=== PATIENT | male | born 1995 | race Caucasian/White ===

== ENCOUNTER 2017-06-20 10:04 | Emergency (ER) | payer BC, OTHER ==
[~2017-06-20] VITALS: Ht 175.3 cm; Wt 119.5 kg
[2017-06-20 10:06] VITALS: Ht 175.3 cm; Wt 119.5 kg
[2017-06-20] MEDS ORDERED: DIPHTH/TET/ACEL PERTUSS (ADULT) 0.5 ML VIAL IM* ONE (10:30)
[2017-06-20] MEDS ORDERED: IBUPROFEN 600 MG TAB PO ONE (10:30)
[2017-06-20] MEDS ORDERED: AMOX1TAB10 PO (10:41)
[2017-06-20] MEDS ORDERED: IBUP-1542 PO (10:41)
[2017-06-20] MEDS ORDERED: LIDOCAINE 2% (MDV) 20 ML INJ INJ ONE (11:00)
--- NOTE | 2017-06-20 12:44 | ERD ---
ER Documentation Chief Complaint Date/Time DATE: 06/20/17 TIME: 12:41 Chief Complaint Complains of a dog bite today HPI 21-year-old male patient with no significant past medical history presents the ED complaining of a dog bite that occurred earlier today. States that this happened at work. 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 Reports that he is right- handed. States that he was sitting down while eating and accidentally bit his left forearm. Denies any fever, chills, loss of sensation, loss of range of motion, nausea, vomiting, diarrhea. Patient is up-to-date with his vaccinations except he is unsure of his tetanus vaccine. ROS All systems reviewed and are negative except as per history of present illness. Medications Home Meds Active Scripts Ibuprofen* (Motrin*) 600 Mg Tab, 600 MG PO Q6, #30 TAB Prov:TOMI PANCHAL PA-C 06/20/17 Amoxicillin/Potassium Clav (Amox-Clav 875-125 mg Tablet) 875-125 mg Tab, 1 TAB PO BID for 10 Days, #20 TAB Prov:TOMI PANCHAL PA-C 06/20/17 Allergies Allergies: Coded Allergies: No Known Allergy (Unverified , 06/20/17) PMhx/Soc Medical and Surgical Hx: pt denies Medical Hx, pt denies Surgical Hx Hx Alcohol Use: Yes (once a week) Hx Substance Use: Yes (marijuana) Hx Tobacco Use: No Smoking Status: Never smoker Physical Exam Vitals Vital Signs Date Time Temp Pulse Resp B/P Pulse Ox O2 Delivery O2 Flow Rate FiO2 06/20/17 10:06 98.3 86 20 164/98 99 Physical Exam Const: [id number], well-nourished. In no acute distress. Head: Atraumatic, normocephalic Eyes: Normal Conjunctiva without injection ENT: Normal external ear, nose and mouth. Neck: Full range of motion. No meningismus. Resp: Clear to auscultation bilaterally. No wheezing, rhonchi, rales, or crackles. No accessory muscle use. No retractions. Cardio: Regular rate and rhythm, no murmurs Skin: No petechiae or rashes Back: No midline tenderness. No CVA tenderness. Ext: No cyanosis, or edema. Cap refill less than 2 seconds. Distal pulses intact bilaterally. 3 cm laceration noted on the volar aspect of patient's left forearm, two 1 cm lacerations on the volar and dorsal aspect of patient's left forearm with minimal bleeding. No visualization of tendons or foreign bodies. Minimal bleeding noted. Slight erythema. No edema. No deformities. Neur: Awake and alert. Normal gait and coordination. Muscle strength 5/5. Sensation intact bilaterally. Psych: Normal Mood and Affect Results 24 hrs Current Medications Medications (Trade) Dose Ordered Sig/Mehreen Route PRN Reason Start Time Stop Time Status Last Admin Dose Admin Ibuprofen (Motrin) 600 mg ONCE ONCE PO 06/20/17 10:30 06/20/17 10:32 DC 06/20/17 10:43 Diphtheria/ Tetanus/Acell Pertussis (Adacel) 0.5 ml ONCE ONCE IM* 06/20/17 10:30 06/20/17 10:32 DC 06/20/17 10:44 Lidocaine (Xylocaine 2% (Mdv) 20 ml) 20 ml ONCE ONCE INJ 06/20/17 11:00 06/20/17 11:01 DC Procedures/MDM This is a 21-year-old male patient with no significant past medical history presents to the ED complaining of a left forearm dog bite. Patient is afebrile and nontoxic-appearing. Patient has normal vital signs. Tdap was administered. Patient gave consent to perform laceration repair. Laceration Repair by me: Anesthesia: 5 cc 2% lidocaine locally Location: Volar aspect of left forearm Tendon/Joint/Nerves: No injury Foreign body: None detected after copious irrigation and exploration with normal saline Technique: 2 3-0 Ethilon Simple Interrupted Sutures Complexity: No subcutaneous sutures/mucosal repair/ edge excision Post Closure Length: [3] cm Patient's bleeding was easily controlled in the department and there is no indication of anemia. Patient is neurovascularly intact. No evidence of compartment syndrome, neurologic injury, vascular injury, open joint, tendon laceration, or foreign body. Patient is appropriate for outpatient follow up. 48 hour wound check. Scar minimization instructions given. Instructed patient to return for suture removal in 7-10 days. Augmentin was prescribed to patient for infection prevention. Instructed patient to return to the ED sooner for any worsening symptoms. Follow up with primary care physician in 1-2 days. Patient's questions were answered. Patient understood and agreed with discharge plan. Departure Diagnosis: Primary Impression: Dog bite Encounter type: initial encounter Qualified Code: W54.0XXA - Dog bite, initial encounter Condition: Stable Patient Instructions: Dog Bite Referrals: [facility] YOU HAVE RECEIVED A MEDICAL SCREENING EXAM AND THE RESULTS INDICATE THAT YOU DO NOT HAVE A CONDITION THAT REQUIRES URGENT TREATMENT IN THE EMERGENCY DEPARTMENT. FURTHER EVALUATION AND TREATMENT OF YOUR CONDITION CAN WAIT UNTIL YOU ARE SEEN IN YOUR DOCTORS OFFICE WITHIN THE NEXT 1-2 DAYS. IT IS YOUR RESPONSIBILITY TO MAKE AN APPOINTMENT FOR FOLOW-UP CARE. IF YOU HAVE A PRIMARY DOCTOR --you should call your primary doctor and schedule an appointment IF YOU DO NOT HAVE A PRIMARY DOCTOR YOU CAN CALL OUR PHYSICIAN REFERRAL HOTLINE AT IF YOU CAN NOT AFFORD TO SEE A PHYSICIAN YOU CAN CHOSE FROM THE FOLLOWING [facility] [address] [facility] [address] [facility] [facility] [address] [facility] [address] [facility] [address] [facility]. [facility]. [address] [facility] [facility] YOU HAVE RECEIVED A MEDICAL SCREENING EXAM AND THE RESULTS INDICATE THAT YOU DO NOT HAVE A CONDITION THAT REQUIRES URGENT TREATMENT IN THE EMERGENCY DEPARTMENT. FURTHER EVALUATION AND TREATMENT OF YOUR CONDITION CAN WAIT UNTIL YOU ARE SEEN IN YOUR DOCTORS OFFICE WITHIN THE NEXT 1-2 DAYS. IT IS YOUR RESPONSIBILITY TO MAKE AN APPOINTMENT FOR FOLOW-UP CARE. IF YOU HAVE A PRIMARY DOCTOR --you should call your primary doctor and schedule and appointment IF YOU DO NOT HAVE A PRIMARY DOCTOR YOU CAN CALL OUR PHYSICIAN REFERRAL HOTLINE AT . IF YOU CAN NOT AFFORD TO SEE A PHYSICIAN YOU CAN CHOSE FROM THE FOLLOWING [facility] INSTITUTIONS: [facility] [address] [place] [address] [facility] [address] [place] [address] [facility] [address] [address] [facility] Additional Instructions: Follow up in 2 days in your clinic for wound check. Follow up with your physician to remove the stitches:For Face wounds 5-7 days.For Elsewhere on the body 7-10 days. Call your primary care doctor TOMORROW for an appointment during the next 2-3 days.See the doctor sooner or return here if your condition worsens before your appointment time. TOMI PANCHAL PA-C Jun 20, 2017 12:44 TOMI PANCHAL PA-C Jun 20, 2017 12:44
== END 2017-06-20 12:35 | disposition home or self-care (01) ==
LOC: FTE 10:04
DX: S51.852A Open bite of left forearm, initial encounter (principal); W54.0XXA Bitten by dog, initial encounter; Y92.89 Other specified places as the place of occurrence of the external cause; Z23 Encounter for immunization
CPT/HCPCS: 12002; 90471; 90715; Z7502; Z7610